=== PATIENT | female | born 1970 | race African-American/Black ===

== ENCOUNTER → 2016-08-31 | Outpatient (CLI) | payer BC ==
[~2016-08-31] MED LIST: AMITIZA24 MCG PO; ASPIRIN PO; CLARINEX5 MG PO; DEXILANT60 MG PO; EXFORGE 5-320 M1 TAB PO; HCTZ PO; NEXIUM PO; NORVASC PO; PROTONIX20 MG PO; SYNTHROID0.05 MG PO
--- NOTE | ~2016-08-31 | CR21 ---
[facility] A Service of [facility] & [facility] RADIOLOGY TEXT RESULTS PATIENT: ZACKARY WANG LOCATION: [facility] : 72 UNIT #: [id number] AGE: [address]: VICKY AGUILAR SEX: F ORDER DR: [id number] [facility] [address] [facility] [place], [place] [address] [id number] O MR#: [id number] Acc #: [id number] NAME: ZACKARY WANG : 1970 SEX: F STUDY DATE/TIME: 08/31/2016 14:37 UNIT: [facility] ROOM: STUDY DESCRIPTION: CR Ankle Min 3 Views Rt Attending Physician: Atilio Guzman Referring Physician: Atilio Guzman Ordering Physician: Atilio Guzman Primary Care Physician: Christie Wilkins M.D. MEDICAL IMAGING REPORT This report is preliminary unless electronic signature is present EXAM Right ankle 3 views, 08/31/2016 HISTORY Right ankle pain and swelling for 2 months with no known injury. FINDINGS 3 views of the right ankle demonstrate no fracture. The bones are normally mineralized and the ankle mortise is intact. There is soft tissue swelling about the right ankle. No foreign body is seen. IMPRESSION Soft tissue swelling about the right ankle. No evidence of fracture or dislocation. Dictated by... Eliu Vargas M.D. THIS IS AN ELECTRONICALLY VERIFIED REPORT Eliu Vargas M.D. at 09/01/2016 8:12 AM ZAIDA/rizwan TD: 08/31/2016 20:48 JOB #: [id number] MEDICAL IMAGING REPORT Page 1 of 1 COPY
== END | disposition home or self-care (01) ==
LOC: CRAD 14:14
DX: M25.571 Pain in right ankle and joints of right foot (principal); M79.89 Other specified soft tissue disorders
CPT/HCPCS: 73610